=== PATIENT | female | born 1975 | race Caucasian/White ===

== ENCOUNTER → 2019-05-29 | Outpatient (CLI) | payer BC ==
--- NOTE | 2019-05-29 13:44 | MM ---
Reason for exam: screening (asymptomatic). Last mammogram was performed 2 years and 9 months ago. History: Patient is nulliparous. Taking hormonal contraceptives for 7 years. Physical Findings: A clinical breast exam by your physician is recommended on an annual basis and results should be correlated with mammographic findings. MG Screening Mammo w CAD Bilateral CC and MLO view(s) were taken. Prior study comparison: September 07, 2016, mammogram. September 16, 2009, bilateral digital screening mammogram. The breast tissue is extremely dense which could obscure a lesion on mammography. There are benign appearing round calcifications bilaterally. There is no discrete abnormality. ASSESSMENT: Benign, BI-RAD 2 RECOMMENDATION: Routine screening mammogram of both breasts in 1 year.
== END | disposition home or self-care (01) ==
LOC: RADMAMWWP 07:26
PROVIDERS: ATTEND Obstetrics & Gynecology Obstetrics
DX: Z12.31 Encounter for screening mammogram for malignant neoplasm of breast (principal)
CPT/HCPCS: 77067

== ENCOUNTER → 2020-04-21 | Outpatient (CLI) | payer BC ==
[2020-04-21 08:07] VITALS: RESP 18
[2020-04-21 08:26] VITALS: BP 127/83; TEMP 97.9
[2020-04-21 08:42] VITALS: PULSE 60
--- NOTE | 2020-04-21 08:42 | P.CONS ---
History of Present Illness - Reason for Consult Consult date: 04/21/20 - Chief Complaint Left arm pain - History of Present Illness This is a 44-year-old lady with one half months of left arm pain which starts at the shoulder blade and goes down to the left hand with numbness and tingling in the lateral 3 fingers on the left side. The patient also feels slight weakness in her left arm and has been dropping things of her hand. The pain started with no precipitating events however she had similar type of pain on the right side years ago for which she received cervical epidural steroid injection which helped her pain significantly. 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 The patient denies any bowel or bladder dysfunction. The pain does not wake the patient up at night. Pain Increases by reaching and decreases by lifting the arm up and using cold packs. The pain does not reach her neck and stops in the shoulder blade. The patient has just finished a course of prednisone which helped help pain slightly. Past Medical History History of Any Multi-Drug Resistant Organisms: None Reported Past Anesthesia/Blood Transfusion Reactions: No Reported Reaction Past Psychological History: No Psychological Hx Reported Smoking Status: Smoker, current status unknown Past Alcohol Use History: Occasional Past Drug Use History: None Reported Additional Drug Use History / Comment(s): CBD oils Medications and Allergies Home Medications Medication Instructions Recorded Confirmed Type Cyclobenzaprine [Flexeril] 10 mg PO TID PRN 04/21/20 04/21/20 History Gabapentin [Neurontin] 100 mg PO DAILY 04/21/20 04/21/20 History RX: predniSONE 10 mg PO DAILY 04/21/20 04/21/20 History Allergies Allergy/AdvReac Type Severity Reaction Status Date / Time No Known Drug Allergies Allergy Unknown Verified 04/21/20 08:08 Physical Exam Vitals: Vital Signs Temp Pulse Resp BP Pulse Ox 04/21/20 08:01 97.9 F 6 L 18 127/83 99 Intake and Output 04/20/20 04/21/20 04/21/20 22:59 06:59 14:59 Other: Weight 58.967 kg - Constitutional General appearance: average body habitus - EENT Eyes: PERRLA - Integumentary Integumentary: no calor, no cellulitis, no cyanotic, no decreased turgor, no flushed, no jaundiced, no normal, no normal turgor, no pale, no rash, no ulcer - Neurologic Neuro exam of the upper extremities showed normal and symmetrical muscle strength and normal biceps reflex bilaterally but absent triceps reflex bilaterally. There is no tenderness around the left shoulder blade or in the trapezius muscle on the left side. No tenderness in the cervical paravertebral musculature. Slightly decreased range of motion to the left neck rotation and to flexion. Neurologic: CNII-XII intact - Psychiatric Psychiatric: A&O x's 3, appropriate affect, intact judgment & insight Assessment and Plan Plan: This is a 44-year-old lady with left cervical radiculopathy due to neural foraminal stenosis. The patient may benefit from getting cervical epidural steroid injection under fluoroscopic guidance. The patient had the same procedure for similar symptoms on the right side a few years ago. The procedure was explained to the patient and her questions were answered. I thank you for the referral
== END | disposition home or self-care (01) ==
LOC: PNWHC3 07:53
PROVIDERS: ATTEND Anesthesiology
DX: M48.061 Spinal stenosis, lumbar region without neurogenic claudication (principal); M54.12 Radiculopathy, cervical region; Z79.891 Long term (current) use of opiate analgesic; Z79.52 Long term (current) use of systemic steroids; Z79.899 Other long term (current) drug therapy
CPT/HCPCS: 99211